=== PATIENT | female | born 1990 | race Two or more races ===

== ENCOUNTER 2017-12-11 02:19 | Emergency (ER) | END 2017-12-11 06:25 | disposition home or self-care (01) ==

== ENCOUNTER 2018-06-27 21:10 | Emergency (ER) | END 2018-06-28 00:55 | disposition home or self-care (01) ==

== ENCOUNTER 2018-07-01 02:04 | Inpatient (IN) | END 2018-07-01 22:35 | disposition home or self-care (01) | DRG 777 ==